=== PATIENT | female | born 1960 | race African-American/Black ===

== ENCOUNTER → 2016-11-01 | Outpatient (CLI) | payer BC ==
[~2016-11-01] MED LIST: BYSTOLIC5 MG PO; COZAAR 50MG50 MG/TAB PO; NO HOME MEDICATIONS; NORVASC5 MG PO; PEPCID 20MG TAB20 MG PO
== END ==
LOC: COL.RAD 10:28
DX: R10.9 Unspecified abdominal pain (principal); R10.2 Pelvic and perineal pain; Z90.710 Acquired absence of both cervix and uterus

== ENCOUNTER → 2016-11-22 | Outpatient (CLI) | payer BC | LOC: COL.RAD 10:11 | DX: R10.84 Generalized abdominal pain (principal); M54.6 Pain in thoracic spine ==

== ENCOUNTER → 2018-09-10 | Outpatient (CLI) | payer BC | LOC: COL.RAD 07:18 | DX: M54.31 Sciatica, right side (principal) ==

== ENCOUNTER → 2018-12-16 | Outpatient (CLI) | payer BC | LOC: COL.VAS 12:24 | DX: Z13.6 Encounter for screening for cardiovascular disorders (principal); R60.0 Localized edema ==